=== PATIENT | female | born 1995 | race Hispanic/Latino ===

== ENCOUNTER 2017-11-08 16:01 | Emergency (ER) | payer MEDICAID, OTHER ==
[2017-11-08] MEDS ORDERED: CEFTRIAXONE SODIUM 1 GM ONE (16:33)
[2017-11-08] MEDS ORDERED: SODIUM CHLORIDE 0.9% 1000ML 2,000 ML IV ONE (16:33)
[2017-11-08 16:37] LABS: APPEARANCE,URINE Cloudy (CLEAR); BILIRUBIN,URINE Negative (NEGATIVE); COLOR,URINE Yellow (YELLOW); GLUCOSE, URINE (UA) Negative (NEGATIVE); KETONES,URINE Negative (NEGATIVE); LEUKOCYTE ESTERASE ,URINE Large (NEGATIVE); NITRATE,URINE Positive (NEGATIVE); OCCULT BLOOD,URINE Large (NEGATIVE); PROTEIN,URINE POS 1+ (NEGATIVE)
[2017-11-08 16:38] LABS: HCG,QUAL RESULT NEGATIVE (NEGATIVE)
[2017-11-08 16:43] LABS: BASOPHILS % (AUTO) 0.5 % (0.0-5.0); EOSINOPHILS % (AUTO) 0.1 % (0.0-8.0); HEMATOCRIT 34.5 % (36-48); MEAN CORPUSCULAR HEMOGLOBIN 30.1 pg (27.0-33.0); MEAN CORPUSCULAR VOLUME 86.2 fL (79-99); MONOCYTES % (AUTO) 9.7 % (3.0-13.0); NEUTROPHILS % (AUTO) 79.7 % (40.0-77.0); PLATELET COUNT (AUTO) 164 K/uL (130-400); RED CELL DISTRIBUTION WIDTH 15.1 % (11.0-15.5); WHITE BLOOD COUNT (AUTO) 6.5 K/uL (4.8-10.8)
[2017-11-08 16:50] LABS: BACTERIA,URINE Moderate /HPF (None Seen); WBC,URINE Full Field /HPF (0-1)
[2017-11-08 16:58] LABS: INR 1.03 (0.85-1.15); PARTIAL THROMBOPLASTIN TIME 34.3 SEC (26.3-35.5); PROTHROMBIN TIME 10.8 SEC (9.6-11.6)
[2017-11-08] MEDS ORDERED: ACETAMINOPHEN EXTRA STRENGTH 500 MG TABLET ONE (16:59)
[2017-11-08 17:01] LABS: CARBON DIOXIDE 25 mmol/L (21-32); CHLORIDE 100 mmol/L (101-111); CREATININE 0.9 mg/dL (0.5-1.5); GLOMERULAR FILTR. RATE CALC 82 mL/min (>60); GLUCOSE,RANDOM 106 mg/dL (70-105); SODIUM SERUM 136 mmol/L (136-145); UREA NITROGEN, BLOOD 7 mg/dL (7-18)
[2017-11-08 17:15] LABS: ALANINE AMINOTRANSFERASE 61 U/L (12-78); ALBUMIN 3.5 g/dL (3.5-5.0); ASPARTATE AMINOTRANSFERASE 40 U/L (10-37); BILIRUBIN,TOTAL 0.8 mg/dL (0.2-1.0); CREATINE KINASE MB < 0.5 ng/mL (0.5-3.6); CREATINE KINASE, TOTAL 38 U/L (21-232); MYOGLOBIN 19 ng/mL (10-92); TROPONIN I < 0.04 ng/mL (0.00-0.06)
[2017-11-08] MEDS ORDERED: POTASSIUM BICARB/CIT AC 25 MEQ TABLET.EFF ONE (17:47)
== END 2017-11-08 18:42 | disposition home or self-care (01) ==
LOC: EDH 16:01
DX: N10 Acute pyelonephritis (principal); R50.9 Fever, unspecified; R05 Cough; M79.1 Myalgia; Z98.890 Other specified postprocedural states
CPT/HCPCS: 36415; 71045; 80053; 81001; 81025; 82550; 82553; 83605; 83874; 84484; 85025; 85610; 85730; 87040; 87088; 87186; 87804 ×2; 93005; 96361; 96374; 99285; J0696; J7030

== ENCOUNTER 2018-09-10 08:29 | Emergency (ER) | payer SELFPAY ==
[2018-09-10 08:58] LABS: BASOPHILS % (AUTO) 1.2 % (0.0-5.0); EOSINOPHILS % (AUTO) 0.1 % (0.0-8.0); HEMATOCRIT 38.8 % (36-48); LYMPHOCYTES % (AUTO) 11.8 % (21.0-51.0); MEAN CORPUSCULAR HEMOGLOBIN 30.3 pg (27.0-33.0); MEAN CORPUSCULAR HGB CONC 33.7 g/dL (32.0-36.0); MEAN CORPUSCULAR VOLUME 89.8 fL (79-99); MONOCYTES % (AUTO) 2.1 % (3.0-13.0); NEUTROPHILS % (AUTO) 84.8 % (40.0-77.0); PLATELET COUNT (AUTO) 199 K/uL (130-400); RED BLOOD CELL COUNT(AUTO) 4.32 MIL/uL (4.00-5.50); RED CELL DISTRIBUTION WIDTH 12.9 % (11.0-15.5); WHITE BLOOD COUNT (AUTO) 8.3 K/uL (4.8-10.8)
[2018-09-10 08:59] LABS: APPEARANCE,URINE Clear (CLEAR); BILIRUBIN,URINE Negative (NEGATIVE); COLOR,URINE Yellow (YELLOW); GLUCOSE, URINE (UA) Negative (NEGATIVE); KETONES,URINE Negative (NEGATIVE); LEUKOCYTE ESTERASE ,URINE Trace (NEGATIVE); NITRATE,URINE Negative (NEGATIVE); OCCULT BLOOD,URINE Trace (NEGATIVE); PH,URINE >=9.0 (5.0-8.0); PROTEIN,URINE Trace (NEGATIVE); UROBILINOGEN,URINE 0.2 mg/dL (0.2-1.0)
[2018-09-10 09:01] LABS: HCG,QUAL RESULT NEGATIVE (NEGATIVE)
[2018-09-10 09:04] LABS: CREATININE 0.7 mg/dL (0.5-1.5)
[2018-09-10 09:09] LABS: ALBUMIN 3.9 g/dL (3.5-5.0); BILIRUBIN,TOTAL 0.3 mg/dL (0.2-1.0); TOTAL PROTEIN, SERUM 7.9 g/dL (6.0-8.3)
[2018-09-10] MEDS ORDERED: SODIUM CHLORIDE 0.9% 1000ML 1,000 ML IV ONE (09:15)
[2018-09-10] MEDS ORDERED: ONDANSETRON HCL 4 MG/2 ML VIAL ONE (09:15)
[2018-09-10] MEDS ORDERED: FAMOTIDINE/PF 20 MG/2 ML VIAL IV ONE (09:16)
[2018-09-10 09:34] LABS: MUCUS,URINE Rare LPF (None Seen); SQUAMOUS EPITHELIAL CELL,UR Few /HPF (0-2)
[2018-09-10 09:36] LABS: BACTERIA,URINE Rare /HPF (None Seen); WBC,URINE 0-1 /HPF (0-1)
== END 2018-09-10 11:40 | disposition home or self-care (01) ==
LOC: EDH 08:29
DX: K29.00 Acute gastritis without bleeding (principal); K80.20 Calculus of gallbladder without cholecystitis without obstruction; Z72.0 Tobacco use; Z98.890 Other specified postprocedural states; Z79.899 Other long term (current) drug therapy
CPT/HCPCS: 36415; 76705; 80053; 81001; 81025; 82150; 83690; 85025; 96361; 96374; 96375; 99284; J2405; J3490; J7030

== ENCOUNTER 2018-09-24 19:47 | Emergency (ER) | payer SELFPAY ==
[2018-09-24 21:11] LABS: APPEARANCE,URINE Clear (CLEAR); BILIRUBIN,URINE Negative (NEGATIVE); COLOR,URINE Yellow (YELLOW); GLUCOSE, URINE (UA) Negative (NEGATIVE); KETONES,URINE 40 mg/dL (NEGATIVE); LEUKOCYTE ESTERASE ,URINE Moderate (NEGATIVE); NITRATE,URINE Negative (NEGATIVE); OCCULT BLOOD,URINE Small (NEGATIVE); PH,URINE 7.5 (5.0-8.0); PROTEIN,URINE Negative (NEGATIVE)
[2018-09-24 21:16] LABS: HCG,QUAL RESULT NEGATIVE (NEGATIVE)
[2018-09-24 21:30] LABS: BACTERIA,URINE Few /HPF (None Seen); YEAST,URINE BUDDING Rare /HPF (None Seen)
[2018-09-24] MEDS ORDERED: DIAZEPAM 5 MG TABLET ONE (22:23)
[2018-09-24] MEDS ORDERED: IBUPROFEN 600 MG TABLET ONE (22:23)
== END 2018-09-24 22:51 | disposition home or self-care (01) ==
LOC: EDH 19:47
DX: G44.219 Episodic tension-type headache, not intractable (principal); N39.0 Urinary tract infection, site not specified; Z72.0 Tobacco use
CPT/HCPCS: 81001; 81025

== ENCOUNTER 2019-03-28 16:41 | Emergency (ER) | payer OTHER ==
[2019-03-28] MEDS ORDERED: TETRACAINE HCL 0.5% 4 ML OPHTH SOLN ONE (17:04)
[2019-03-28] MEDS ORDERED: FLUORESCEIN SODIUM 1 STRIP STRIP ONE (17:04)
[2019-03-28] MEDS ORDERED: NA BORATE/BORIC AC/H2O/NACL 120 ML OPHTH IRRIG SOLN ONE (17:05)
== END 2019-03-28 18:24 | disposition home or self-care (01) ==
LOC: EDH 16:41
DX: O26.891 Other specified pregnancy related conditions, first trimester (principal); H57.89 Other specified disorders of eye and adnexa; Z3A.12 12 weeks gestation of pregnancy

== ENCOUNTER 2019-08-20 17:15 | Observation (INO) | payer MEDICAID, OTHER ==
[2019-08-20 18:24] LABS: APPEARANCE,URINE Clear (CLEAR); BILIRUBIN,URINE Negative (NEGATIVE); COLOR,URINE Yellow (YELLOW); GLUCOSE, URINE (UA) Negative (NEGATIVE); KETONES,URINE Negative (NEGATIVE); LEUKOCYTE ESTERASE ,URINE Negative (NEGATIVE); NITRATE,URINE Negative (NEGATIVE); OCCULT BLOOD,URINE Small (NEGATIVE); PROTEIN,URINE Negative (NEGATIVE); UROBILINOGEN,URINE 0.2 mg/dL (0.2-1.0)
[2019-08-20 18:50] LABS: WBC,URINE 0-1 /HPF (0-1)
[2019-08-20 18:51] LABS: BACTERIA,URINE Rare /HPF (None Seen); SQUAMOUS EPITHELIAL CELL,UR Rare /HPF (0-2)
[2019-08-20] MEDS: LACTATED RINGERS 1000ML 1,000 ML IV SCH ×2 (19:20→23:52)
[2019-08-20] MEDS ORDERED: CEFAZOLIN SODIUM 1 GM VIAL IVP PRN (20:15)
[2019-08-20] MEDS ORDERED: HYDROCODONE/ACETAMINOPHEN 5/325 MG TAB PO PRN (20:15)
[2019-08-20] MEDS ORDERED: ACETAMINOPHEN-CODEINE 300/30MG TAB PO PRN (20:15)
[2019-08-20] MEDS ORDERED: SIMETHICONE 80 MG TAB.CHEW PO PRN (20:15)
[2019-08-20] MEDS ORDERED: LACTATED RINGERS 1000ML 1,000 ML IV SCH (20:15)
[2019-08-20] MEDS ORDERED: ACETAMINOPHEN EXTRA STRENGTH 500 MG TABLET PO PRN (20:15)
[2019-08-20] MEDS ORDERED: LANOLIN 30GM OINTMENT TP PRN (20:15)
[2019-08-20] MEDS ORDERED: BISACODYL 10 MG SUPP.RECT RC PRN (20:15)
[2019-08-20] MEDS ORDERED: IBUPROFEN 600 MG TABLET PO PRN (20:15)
[2019-08-20] MEDS ORDERED: DOCUSATE SODIUM 100 MG CAP PO SCH (21:00)
== END 2019-08-21 06:15 | disposition home or self-care (01) ==
LOC: EDH 17:15 → LDH 17:29
PROVIDERS: ADMIT Obstetrics & Gynecology; ATTEND Obstetrics & Gynecology
DX: O26.893 Other specified pregnancy related conditions, third trimester (principal); R10.32 Left lower quadrant pain; O75.89 Other specified complications of labor and delivery; Z3A.33 33 weeks gestation of pregnancy
CPT/HCPCS: 81001; 99284; G0378 ×12; J7120; 96360; 96361